=== PATIENT | female | born 1965 | race Caucasian/White ===

== ENCOUNTER 2017-11-19 14:09 | Emergency (ER) | payer MEDICAID ==
[~2017-11-19] VITALS: Ht 170.2 cm; Wt 80.0 kg
[2017-11-19] MEDS ORDERED: DEXAMETHASONE SOD PHOS 4 MG/ML 5 ML VIAL IVP ONE (14:15)
[2017-11-19] MEDS ORDERED: SODIUM CHLORIDE 0.9% 1,000 ML IV ONE (14:15)
[2017-11-19 17:59] VITALS: BP 124/70
== END 2017-11-19 18:33 | disposition home or self-care (01) ==
LOC: EMS 14:11
DX: T78.2XXA Anaphylactic shock, unspecified, initial encounter (principal); Z79.899 Other long term (current) drug therapy; Z91.048 Other nonmedicinal substance allergy status
CPT/HCPCS: 82962; 96374; 99291; J1100

== ENCOUNTER 2017-12-01 12:33 | Emergency (ER) | payer MEDICAID ==
[~2017-12-01] VITALS: Ht 170.2 cm; Wt 81.8 kg
[2017-12-01] MEDS ORDERED: ALBUTEROL SULFATE 5 MG/ML 20 ML NEB SOLN [BULK] NEB ONE ×2 (12:40→12:45)
[2017-12-01] MEDS ORDERED: IPRATROPIUM BROMIDE 0.5 MG/2.5 ML NEB SOLUTION NEB ONE ×2 (12:40→12:45)
[2017-12-01] MEDS ORDERED: SODIUM CHLORIDE 0.9% 1,000 ML IV ONE (12:42)
[2017-12-01] MEDS ORDERED: MethylPREDNISolone SOD SUCC 125 MG/2 ML VIAL IVP ONE (12:45)
[2017-12-01] MEDS ORDERED: RANITIDINE HCL 25 MG/ML 2 ML VIAL IVP ONE (12:45)
[2017-12-01] MEDS ORDERED: DiphenhydrAMINE HCL 50 MG/ML VIAL IVP ONE ×2 (12:45→16:45)
[2017-12-01] MEDS ORDERED: EPINEPHrine 1:1,000 [1 MG/ML] AMP IM ONE (12:45)
[2017-12-01] MEDS ORDERED: PRED50TA2 PO (12:49)
[2017-12-01] MEDS ORDERED: DIPH50 PO (12:49)
[2017-12-01 13:01] LABS: BASOPHILS % (AUTO) 0.3 % (0.0-2.0); EOSINOPHILS % (AUTO) 2.6 % (1.0-6.0); HEMATOCRIT 36.8 % (36-46); HEMOGLOBIN 12.1 g/dL (12.0-16.0); LYMPHOCYTES # (AUTO) 4.5 K/uL (1.0-4.8); LYMPHOCYTES % (AUTO) 37.1 % (22.0-44.0); MEAN CORPUSCULAR HEMOGLOBIN 30.1 pg (26.0-34.0); MEAN CORPUSCULAR VOLUME 91 fL (80-100); MONOCYTES # (AUTO) 1.2 K/uL (0.1-1.0); PLATELET COUNT (AUTO) 341 K/uL (150-450); RED BLOOD CELL COUNT(AUTO) 4.03 MIL/uL (4.00-5.20); RED CELL DISTRIBUTION WIDTH 13.5 % (11.5-14.5)
[2017-12-01 13:16] LABS: ALANINE AMINOTRANSFERASE 17 U/L (12-78); ALBUMIN 3.1 g/dL (3.4-5.0); ALKALINE PHOSPHATASE 55 U/L (46-116); ANION GAP 9 mmol/L (8-16); ASPARTATE AMINOTRANSFERASE 18 U/L (15-37); BILIRUBIN,TOTAL 0.8 mg/dL (0.1-1.0); CARBON DIOXIDE 25 mmol/L (22-29); CHLORIDE 106 mmol/L (98-107); GLOMERULAR FILTR. RATE CALC > 60 mL/min (>60); GLUCOSE,RANDOM 225 mg/dL (70-110); SODIUM SERUM 140 mmol/L (136-145); TOTAL PROTEIN, SERUM 6.2 g/dL (6.4-8.2); UREA NITROGEN, BLOOD 15 mg/dL (7-18)
[2017-12-01 13:17] LABS: POTASSIUM 2.9 mmol/L (3.5-5.1)
[2017-12-01] MEDS ORDERED: POTASSIUM CHL 40 MEQ/D5-0.45NS 1,000 ML IV ONE (13:30)
[2017-12-01 16:21] VITALS: BP 116/65
== END 2017-12-01 17:13 | disposition home or self-care (01) ==
LOC: EMS 12:35
DX: T78.09XA Anaphylactic reaction due to other food products, initial encounter (principal); E87.6 Hypokalemia; R73.9 Hyperglycemia, unspecified
CPT/HCPCS: 36415; 80053; 85025; 94644; 96365; 96366; 96372; 96375; 96376; 99285; J0171; J1200; J2930; J3480; J7611; J2780

== ENCOUNTER 2017-12-06 17:05 | Emergency (ER) | payer MEDICAID ==
[~2017-12-06] VITALS: Ht 167.6 cm; Wt 70.5 kg
[~2017-12-06 17:05] MED LIST: DIPH50 PO; PRED50TA2 PO
[2017-12-06] MEDS ORDERED: MethylPREDNISolone SOD SUCC 125 MG/2 ML VIAL IVP ONE (18:00)
[2017-12-06] MEDS ORDERED: FAMOTIDINE 10 MG/ML 2 ML VIAL IVP ONE (18:00)
[2017-12-06 19:48] VITALS: BP 116/76
== END 2017-12-06 20:34 | disposition home or self-care (01) ==
LOC: EMS 17:06
DX: T78.09XA Anaphylactic reaction due to other food products, initial encounter (principal); L50.0 Allergic urticaria; Z91.09 Other allergy status, other than to drugs and biological substances
CPT/HCPCS: 96374; 96375; 99284; J2930; J3490

== ENCOUNTER 2019-05-30 21:52 | Emergency (ER) | payer MEDICAID ==
[~2019-05-30] VITALS: Ht 170.2 cm; Wt 72.7 kg
[2019-05-30] MEDS ORDERED: SODIUM CHLORIDE 0.9% 1,000 ML IV ONE (22:45)
[2019-05-30] MEDS ORDERED: DiphenhydrAMINE HCL 50 MG/ML VIAL IVP ONE (22:45)
[2019-05-30] MEDS ORDERED: METOCLOPRAMIDE HCL 5 MG/ML 2 ML VIAL IVP ONE (22:45)
[2019-05-30 23:05] LABS: BASOPHILS % (AUTO) 0.3 % (0.0-2.0); EOSINOPHILS % (AUTO) 1.6 % (1.0-6.0); HEMATOCRIT 37.4 % (36-46); HEMOGLOBIN 12.2 g/dL (12.0-16.0); LYMPHOCYTES # (AUTO) 0.6 K/uL (1.0-4.8); LYMPHOCYTES % (AUTO) 8.8 % (22.0-44.0); MEAN CORPUSCULAR HEMOGLOBIN 30.4 pg (26.0-34.0); MEAN CORPUSCULAR HGB CONC 32.7 G/dL (31.0-37.0); MEAN CORPUSCULAR VOLUME 93 fL (80-100); MONOCYTES # (AUTO) 0.8 K/uL (0.1-1.0); MONOCYTES % (AUTO) 12.3 % (2.0-9.0); NEUTROPHILS # (AUTO) 5.2 K/uL (1.8-7.7); PLATELET COUNT (AUTO) 251 K/uL (150-450); RED BLOOD CELL COUNT(AUTO) 4.03 MIL/uL (4.00-5.20); RED CELL DISTRIBUTION WIDTH 13.8 % (11.5-14.5)
[2019-05-30 23:16] LABS: ANION GAP 9 mmol/L (8-16); CALCIUM, TOTAL 8.8 mg/dL (8.8-10.5); CARBON DIOXIDE 26 mmol/L (22-29); CHLORIDE 99 mmol/L (98-107); CREATININE 0.59 mg/dL (0.60-1.30); GLOMERULAR FILTR. RATE CALC > 60 mL/min (>60); GLUCOSE,RANDOM 121 mg/dL (70-110); POTASSIUM 3.8 mmol/L (3.5-5.1); SODIUM SERUM 134 mmol/L (136-145); UREA NITROGEN, BLOOD 8 mg/dL (7-18)
[2019-05-30 23:23] LABS: ALANINE AMINOTRANSFERASE 26 U/L (12-78); ALBUMIN 3.2 g/dL (3.4-5.0); ALKALINE PHOSPHATASE 69 U/L (46-116); ASPARTATE AMINOTRANSFERASE 23 U/L (15-37); BILIRUBIN,TOTAL 0.3 mg/dL (0.1-1.0); TOTAL PROTEIN, SERUM 7.2 g/dL (6.4-8.2)
[2019-05-31 00:48] VITALS: BP 148/88
== END 2019-05-31 00:57 | disposition home or self-care (01) ==
LOC: EMS 21:53
DX: R51 Headache (principal); R11.0 Nausea
CPT/HCPCS: 36415; 70450; 80053; 85025; 96374; 96375; 99284; J1200; J2765; J7030

== ENCOUNTER 2021-12-07 19:27 | Emergency (ER) | payer MEDICAID ==
[~2021-12-07] VITALS: Ht 167.6 cm; Wt 84.1 kg
[2021-12-07 21:20] VITALS: BP 129/79
== END 2021-12-07 21:43 | disposition home or self-care (01) ==
LOC: EMS 19:28
DX: L98.9 Disorder of the skin and subcutaneous tissue, unspecified (principal); Z88.8 Allergy status to other drugs, medicaments and biological substances
CPT/HCPCS: 99283; Z7502

== ENCOUNTER 2022-01-06 14:02 | Emergency (ER) | payer MEDICAID ==
[~2022-01-06] VITALS: Ht 167.6 cm; Wt 81.8 kg
[2022-01-06 14:53] VITALS: BP 132/85
== END 2022-01-06 15:35 | disposition home or self-care (01) ==
LOC: EMS 14:02
DX: L98.9 Disorder of the skin and subcutaneous tissue, unspecified (principal); F17.200 Nicotine dependence, unspecified, uncomplicated; F12.90 Cannabis use, unspecified, uncomplicated; F19.90 Other psychoactive substance use, unspecified, uncomplicated; Z88.8 Allergy status to other drugs, medicaments and biological substances
CPT/HCPCS: 99281; Z7502

== ENCOUNTER 2022-04-09 20:46 | Emergency (ER) | payer MEDICAID ==
[~2022-04-09] VITALS: Ht 167.6 cm; Wt 77.3 kg
[2022-04-09 21:08] LABS: COVID AG,FIA SOURCE NASAL SWAB
[2022-04-09 21:23] VITALS: BP 132/77
[2022-04-09 21:38] LABS: INFLUENZA TYPE A NEGATIVE FOR TYPE A (NEGATIVE); INFLUENZA TYPE B NEGATIVE FOR TYPE B (NEGATIVE)
== END 2022-04-09 22:19 | disposition home or self-care (01) ==
LOC: EMS 20:48
DX: U07.1 COVID-19 (principal); F12.90 Cannabis use, unspecified, uncomplicated; F15.90 Other stimulant use, unspecified, uncomplicated; Z91.09 Other allergy status, other than to drugs and biological substances
CPT/HCPCS: 87804; 99283

== ENCOUNTER 2023-11-14 18:22 | Emergency (ER) | payer MEDICAID ==
[~2023-11-14] VITALS: Ht 160 cm; Wt 79.5 kg
[~2023-11-14 18:22] MED LIST changes: -DIPH50 PO; +IBUP-1492 PO; -PRED50TA2 PO
[2023-11-14 18:31] VITALS: BP 147/99; PULSE 88; RESP 18; TEMP 98.5
[2023-11-14] MEDS ORDERED: DIPH-1237 PO (18:36)
[2023-11-14] MEDS ORDERED: [UNRECOGNIZED DRUG - CODE] PO (18:36)
[2023-11-14] MEDS ORDERED: CEPH-558 PO (18:36)
[2023-11-14] MEDS ORDERED: ACET-66 PO (18:36)
== END 2023-11-14 22:10 | disposition left against medical advice (07) ==
LOC: EMS 18:22
DX: R21 Rash and other nonspecific skin eruption (principal); Z53.21 Procedure and treatment not carried out due to patient leaving prior to being seen by health care provider
CPT/HCPCS: 99281; Z7502

== ENCOUNTER 2025-02-18 13:25 | Emergency (ER) | payer MEDICAID ==
[~2025-02-18] VITALS: Ht 165.1 cm; Wt 72.0 kg
[~2025-02-18 13:25] MED LIST changes: +ACET-66 PO; +CEPH-558 PO; +DIPH-1237 PO; -IBUP-1492 PO; +[UNRECOGNIZED DRUG - CODE] PO
[2025-02-18 13:38] VITALS: TEMP 98.4
[2025-02-18] MEDS ORDERED: DICL100G60 TP (13:41)
[2025-02-18 14:37] VITALS: BP 126/88; PULSE 72; RESP 18; O2SAT 99
[2025-02-18] MEDS: ACETAMINOPHEN 500 MG TABLET PO ONE (15:22)
[2025-02-18] MEDS: IBUPROFEN 400 MG TABLET PO ONE (15:34)
[2025-02-18] MEDS: CIPROFLOXACIN HCL 250 MG TABLET PO ONE (15:59)
[2025-02-18] MEDS: OFLOXACIN 0.3% 5 ML OTIC SOLUTION AD ONE (16:00)
[2025-02-18] MEDS ORDERED: [UNRECOGNIZED DRUG - CODE] PO (16:21)
== END 2025-02-18 16:42 | disposition home or self-care (01) ==
LOC: EMS 13:25
DX: H60.8X1 Other otitis externa, right ear (principal); F12.90 Cannabis use, unspecified, uncomplicated; F15.90 Other stimulant use, unspecified, uncomplicated; Z79.899 Other long term (current) drug therapy; Z91.013 Allergy to seafood
CPT/HCPCS: 99284; Z7502; Z7610